=== PATIENT | female | born 1980 | race African-American/Black ===

== ENCOUNTER 2018-05-09 17:15 | Emergency (ER) | payer OTHER ==
[~2018-05-09] VITALS: Ht 162.6 cm; Wt 95.3 kg
[~2018-05-09 17:15] MED LIST: ACETAMINOPHEN-1 EAC1 PO; ALBUTEROL INHAL17 GM IH; ASPIRIN325 PO; AZITHROMYCIN 2250 MG PO; BACTRIM DS TAB1 EACH PO; CYCLOBENZAPRINE; FLEXERIL PO; FLONASE 0.05%50 MCG NS; FLONASE16 GM NS; IBUPROFEN 800800 MG PO; LISINOPRIL20 MG PO; LOPRESSOR50 PO; NAPROSYN500 MG PO; NOHOMEMEDICATIONS; NORCO 5-325 TA1 EACH PO; ORPHENADRINE C100 M2 PO; PERCOCET 5-3251 EACH PO; PREDNISONE 20 M20 MG PO; ULTRAM 50MG TAB50 MG PO; VICODIN 5-5001 EACH PO; ZESTRIL40 MG PO; ZPAK PO
[2018-05-09] MEDS ORDERED: ULTRAM 50MG TAB50 MG PO (17:47)
[2018-05-09] MEDS ORDERED: CYCLOBENZAPRINE5 MG PO (17:47)
[2018-05-09] MEDS ORDERED: TIZANIDINE HCL 22 M1 PO (18:23)
[2018-05-09 18:25] VITALS: BP 166/89
== END 2018-05-09 18:26 | disposition home or self-care (01) ==
LOC: ER 17:15
DX: M25.511 Pain in right shoulder (principal); J45.909 Unspecified asthma, uncomplicated; Z90.710 Acquired absence of both cervix and uterus; Z88.0 Allergy status to penicillin

== ENCOUNTER 2019-06-02 16:14 | Emergency (ER) | payer OTHER ==
[~2019-06-02] VITALS: Ht 162.6 cm; Wt 99.8 kg
[~2019-06-02 16:14] MED LIST changes: +CYCLOBENZAPRINE5 MG PO; +TIZANIDINE HCL 22 M1 PO
[2019-06-02 16:49] LABS: ABSOLUTE NEUTROPHILS 2.4 thou/uL (1.4-8.2); BASOPHILS 1.2 % (0.0-2.0); EOSINOPHILS 1.1 % (0.0-3.0); HEMATOCRIT 40.8 % (37.0-47.0); LYMPHOCYTES 50.5 % (24.0-44.0); MCH 31.9 pg (26.0-34.0); MCHC 34.3 g/dL (28.0-37.0); MONOCYTES 5.5 % (1.0-8.0); PLATELET COUNT 290 thou/uL (150-400); POLYS 41.7 % (36.0-66.0); RBC 4.39 mil/uL (4.20-5.00); RDW 13.1 % (10.5-14.5); WBC 5.7 thou/uL (4.0-11.0)
[2019-06-02 17:04] LABS: ANION GAP 12 mmol/L (7-16); BUN 11 mg/dL (7-18); CALCIUM 9.7 mg/dL (8.5-10.1); CHLORIDE 100 mmol/L (98-107); CO2 25 mmol/L (21-32); CREATININE 0.8 mg/dL (0.6-1.0); GLUCOSE 75 mg/dL (74-106); POTASSIUM 3.7 mmol/L (3.5-5.1); SODIUM 137 mmol/L (136-145)
[2019-06-02 17:09] LABS: ALBUMIN 4.7 g/dL (3.4-5.0); SGOT 19 U/L (15-37); SGPT 37 U/L (30-65); TOTAL BILIRUBIN 0.4 mg/dL (<0.1-1.0); TROPONIN-I <0.06 ng/mL (<0.06)
--- NOTE | 2019-06-02 17:15 | EKG ---
[facility] [place] [address] ELECTROCARDIOGRAM REPORT Name: TONJAEKATERINA SHAYLEE Room #: [facility]..#: [id number] Admission: Attend Phys: Discharge: Date of : 80 Report #: [id number] THIS REPORT FOR: //name// [facility] ED Test Date: 2019-06-02 Test Time: 16:18:45 Pat Name: EKATERINA EVANGELISTA Department: Room: Gender: F Hand Twister: SHARAD : 1980 Requested By: Ahmet Og Order Number: [id number] MD: Roe Granger Measurements Intervals [place] Rate: 83 P: 42 DC: 164 QRS: -8 QRSD: 87 T: 111 QT: 372 QTc: 437 Interpretive Statements Sinus rhythm Ventricular premature complex LVH with secondary repolarization abnormality Compared to ECG 01/17/2010 11:44:46 Ventricular premature complex(es) now present Electronically Signed On 06-02-2019 17:15:08 CIRCLE BEVELER by Roe Granger [email or web address] <ELECTRONICALLY SIGNED> By: Roe Granger MD, [facility] 06/02/19 1715 1618 1618 Roe Granger MD, FACC /EPI
[2019-06-02] MEDS ORDERED: VIBRAMYCIN 100100 M2 PO (19:07)
[2019-06-02 19:15] VITALS: BP 130/81
== END 2019-06-02 19:16 | disposition home or self-care (01) ==
LOC: ER 16:14
PROVIDERS: Emergency Medicine
DX: R07.9 Chest pain, unspecified (principal); J32.9 Chronic sinusitis, unspecified; J45.909 Unspecified asthma, uncomplicated; Z88.0 Allergy status to penicillin; Z90.710 Acquired absence of both cervix and uterus

== ENCOUNTER 2019-06-09 15:21 | Emergency (ER) | payer OTHER ==
[~2019-06-09] VITALS: Ht 162.6 cm; Wt 98.9 kg
--- NOTE | ~2019-06-09 | EKG ---
[facility] [place] [address] ELECTROCARDIOGRAM REPORT Name: TONJAEKATERINA JUNE Room #: [facility].#: [id number] Admission: 06/09/19 Attend Phys: Discharge: Date of : 80 Report #: [id number] THIS REPORT FOR: cc: FAM - No family physician/PCP FAM - No family physician/PCP Speedy Ruff MD ~ THIS REPORT FOR: //name// [facility] ED Test Date: 2019-06-09 Test Time: 16:26:44 Pat Name: EKATERINA EVANGELISTA Department: Room: Gender: F Software Security Consultant: : 1980 Requested By: Marshal Bob Order Number: [id number] MD: Measurements Intervals [place] Rate: 63 P: -10 RI: 144 QRS: -6 QRSD: 90 T: 92 QT: 425 QTc: 436 Interpretive Statements Sinus rhythm Left ventricular hypertrophy Nonspecific T abnrm, anterolateral leads Compared to ECG 06/02/2019 16:18:45 Ventricular premature complex(es) no longer present Early repolarization no longer present [email or web address] By: 1626 1626 Epiphany EpiphanyMD /EPI
[~2019-06-09 15:21] MED LIST changes: +VIBRAMYCIN 100100 M2 PO
[2019-06-09 16:35] LABS: ABSOLUTE NEUTROPHILS 1.9 thou/uL (1.4-8.2); BASOPHILS 1.4 % (0.0-2.0); EOSINOPHILS 1.6 % (0.0-3.0); HEMATOCRIT 38.8 % (37.0-47.0); HEMOGLOBIN 13.1 gm/dL (12.0-15.0); LYMPHOCYTES 48.8 % (24.0-44.0); MCH 31.6 pg (26.0-34.0); MCHC 33.8 g/dL (28.0-37.0); MCV 93.4 fL (80.0-100.0); MONOCYTES 9.9 % (1.0-8.0); PLATELET COUNT 279 thou/uL (150-400); POLYS 38.3 % (36.0-66.0); RBC 4.16 mil/uL (4.20-5.00); RDW 12.9 % (10.5-14.5); WBC 4.9 thou/uL (4.0-11.0)
[2019-06-09 16:47] LABS: ANION GAP 11 mmol/L (7-16); BUN 9 mg/dL (7-18); CALCIUM 9.4 mg/dL (8.5-10.1); CHLORIDE 102 mmol/L (98-107); CO2 26 mmol/L (21-32); CREATININE 0.8 mg/dL (0.6-1.0); GLUCOSE 88 mg/dL (74-106); POTASSIUM 3.6 mmol/L (3.5-5.1); SODIUM 139 mmol/L (136-145)
[2019-06-09 16:56] LABS: LIPASE 104 U/L (73-393); TROPONIN-I <0.06 ng/mL (<0.06)
[2019-06-09] MEDS ORDERED: LIDOCAINE PAIN1 EACH TOP (17:08)
[2019-06-09] MEDS ORDERED: VALIUM5 MG PO (17:08)
[2019-06-09] MEDS ORDERED: BACLOFEN5 MG PO (17:11)
[2019-06-09 17:33] VITALS: BP 137/90
== END 2019-06-09 17:34 | disposition home or self-care (01) ==
LOC: ER 15:21
PROVIDERS: Emergency Medicine
DX: M54.9 Dorsalgia, unspecified (principal); E66.9 Obesity, unspecified; J45.909 Unspecified asthma, uncomplicated; Z68.37 Body mass index [BMI] 37.0-37.9, adult; Z90.710 Acquired absence of both cervix and uterus; Z98.51 Tubal ligation status; Z88.0 Allergy status to penicillin

== ENCOUNTER 2020-01-14 12:50 | Emergency (ER) | payer OTHER ==
[~2020-01-14] VITALS: Ht 162.6 cm; Wt 96.6 kg
[~2020-01-14 12:50] MED LIST changes: +BACLOFEN5 MG PO; +LIDOCAINE PAIN1 EACH TOP; +VALIUM5 MG PO
[2020-01-14 13:27] LABS: URINE BILIRUBIN NEGATIVE (Negative); URINE BLOOD NEGATIVE (Negative); URINE CLARITY CLEAR; URINE COLOR YELLOW; URINE GLUCOSE-RANDOM* NEGATIVE (Negative); URINE KETONES NEGATIVE (Negative); URINE LEUKOCYTES-REFLEX TRACE (Negative); URINE NITRITE-REFLEX NEGATIVE (Negative); URINE PROTEIN (DIPSTICK) NEGATIVE (Negative); URINE UROBILINOGEN 0.2 E.U./dl (0.2-1.0)
[2020-01-14 13:36] LABS: HEMATOCRIT 37.1 % (37.0-47.0); HEMOGLOBIN 12.8 gm/dL (12.0-15.0); MCH 32.1 pg (26.0-34.0); MCHC 34.5 g/dL (28.0-37.0); MCV 92.9 fL (80.0-100.0); RBC 3.99 mil/uL (4.20-5.00); RDW 13.5 % (10.5-14.5); WBC 13.9 thou/uL (4.0-11.0)
[2020-01-14] MEDS ORDERED: XARELTO20 MG PO (13:37)
[2020-01-14] MEDS ORDERED: AIMOVIG AU140 MG/1 M SUBQ (13:37)
[2020-01-14] MEDS ORDERED: DILTIAZEM 24HR240 M1 PO (13:37)
[2020-01-14 13:42] LABS: CALCIUM 9.4 mg/dL (8.5-10.1); CREATININE 0.8 mg/dL (0.6-1.0); POTASSIUM 3.8 mmol/L (3.5-5.1)
[2020-01-14 13:48] LABS: TOTAL BILIRUBIN 0.3 mg/dL (0.2-1.0); TOTAL PROTEIN 8.2 g/dL (6.4-8.2)
[2020-01-14] MEDS ORDERED: PRILOSEC OTC20 MG PO (15:58)
[2020-01-14] MEDS ORDERED: BENTYL 20 MG TA20 M1 PO (15:58)
[2020-01-14 17:08] VITALS: BP 118/63
== END 2020-01-14 17:09 | disposition home or self-care (01) ==
LOC: ER 12:50
PROVIDERS: Emergency Medicine; Physician Assistant
DX: R10.11 Right upper quadrant pain (principal); J45.909 Unspecified asthma, uncomplicated; Z90.710 Acquired absence of both cervix and uterus; Z90.49 Acquired absence of other specified parts of digestive tract; Z79.899 Other long term (current) drug therapy; Z79.82 Long term (current) use of aspirin; Z88.0 Allergy status to penicillin